=== PATIENT | female | born 1935 | race Caucasian/White ===

== ENCOUNTER → 2017-08-03 | Outpatient (CLI) | payer OTHER, BC | END | disposition home or self-care (01) | LOC: RD 16:13 | DX: M25.552 Pain in left hip (principal); M25.551 Pain in right hip; Z91.81 History of falling ==

== ENCOUNTER → 2017-08-28 | Outpatient (CLI) | payer OTHER, BC | END | disposition home or self-care (01) | LOC: RD 10:35 | DX: S32.509A Unspecified fracture of unspecified pubis, initial encounter for closed fracture (principal); S32.120A Nondisplaced Zone II fracture of sacrum, initial encounter for closed fracture; X58.XXXA Exposure to other specified factors, initial encounter; Y92.9 Unspecified place or not applicable ==